=== PATIENT | male | born 1990 | race Caucasian/White ===

== ENCOUNTER 2017-09-12 00:49 | Inpatient (IN) | payer MEDICAID, OTHER ==
[2017-09-12 01:45] LABS: ADD MAN DIFF? NO
[2017-09-12 01:47] LABS: WHITE BLOOD COUNT 10.4 10^3/ul (4.8-10.8)
[2017-09-12 01:47] LABS: BASOPHILS % 0.2 % (0.0-2.0); EOSINOPHILS # 0.1 10^3/ul (0.0-0.5); EOSINOPHILS % 0.6 % (0.0-7.0); HEMATOCRIT 43.7 % (42.0-52.0); HEMOGLOBIN 13.8 g/dl (14.0-18.0); LYMPHOCYTES # 2.1 10^3/ul (0.8-2.9); LYMPHOCYTES % 20.7 % (15.0-51.0); MEAN CORPUSCULAR HEMOGLOBIN 27.4 pg (29.0-33.0); MEAN CORPUSCULAR HGB CONC 31.6 g/dl (32.0-37.0); MEAN CORPUSCULAR VOLUME 86.7 fl (82.0-101.0); MEAN PLATELET VOLUME 11.8 fl (7.4-10.4); MONOCYTE # 0.4 10^3/ul (0.3-0.9); MONOCYTES % 3.5 % (0.0-11.0); NEUTROPHIL # 7.7 10^3/ul (1.6-7.5); NEUTROPHILS % 74.4 % (39.0-77.0); PLATELET COUNT 170 10^3/UL (140-415); RED BLOOD COUNT 5.04 10^6/ul (4.70-6.10); RED CELL DISTRIBUTION WIDTH 12.9 % (11.5-14.5)
[2017-09-12] MEDS: ASPIRIN 81 MG TAB PO (01:55)
[2017-09-12 01:56] LABS: ADD UMIC YES; UR ASCORBIC ACID 40 mg/dL (NEGATIVE); UR BILIRUBIN (Dip) NEGATIVE (NEGATIVE); UR BLOOD (Dip) NEGATIVE (NEGATIVE); UR CLARITY CLEAR (CLEAR); UR COLOR YELLOW (YELLOW); UR GLUCOSE (Dip) 3+ mg/dL (NEGATIVE); UR KETONES (Dip) NEGATIVE (NEGATIVE); UR LEUKOCYTE ESTERASE (Dip) NEGATIVE Leu/ul (NEGATIVE); UR MUCUS FEW /HPF (NONE SEEN); UR NITRITE (Dip) NEGATIVE (NEGATIVE); UR RBC 1 /HPF (0-5); UR SPECIFIC GRAVITY (Dip) 1.017 (1.003-1.030); UR TOTAL PROTEIN (Dip) 1+ mg/dl (NEGATIVE); UR UROBILINOGEN (Dip) NEGATIVE (NEGATIVE); UR WBC 0 /HPF (0-5)
[2017-09-12] MEDS: FUROSEMIDE 40 MG INJ IV (01:56)
[2017-09-12 02:05] LABS: AADO2 Arterial 436.4 mmHg (7.0-24.0); Allen Test ACCEPTAB; Arterial Base Excess 0.3 mmol/L (-3.0-3); Arterial Blood Gas Oxygen Sat 94.5 mmHG (95.0-98.0); Arterial COHb 1.3 % (0.0-3.0); Arterial Fraction of Oxyhgb 93.1 % (93.0-99.0); Arterial HCO3 27.5 mmol/L (22.0-26.0); Arterial MetHb 0.2 % (0.0-1.5); Arterial Total Hemglobin 14.8 g/dl (12.0-18.0); Arterial pCO2 54.5 mmhg (35-45); Blood Gas IEPAP 15/5; Blood Gas PS 10; MODE MASK - BIPAP; Site Right Radial
[2017-09-12 02:08] LABS: ALANINE AMINOTRANSFERASE 50 IU/L (13-69); ALBUMIN 5.1 g/dl (3.3-4.9); ALBUMIN/GLOBULIN RATIO 1.88; ALKALINE PHOSPHATASE 82 IU/L (42-121); ANION GAP 23 (8-16); ASPARTATE AMINO TRANSFERASE 42 IU/L (15-46); BILIRUBIN,INDIRECT 0.2 mg/dl (0-1.1); BILIRUBIN,TOTAL 0.2 mg/dl (0.2-1.3); BLOOD UREA NITROGEN 20 mg/dl (7-20); CALCIUM 9.1 mg/dl (8.4-10.2); CARBON DIOXIDE 27 mmol/L (21-31); CHLORIDE 92 mmol/L (97-110); CREATININE 0.98 mg/dl (0.61-1.24); GLUCOSE 318 mg/dl (70-220); LIPASE 46 U/L (23-300); POTASSIUM 3.8 mmol/L (3.5-5.1); SODIUM 138 mmol/L (135-144); TOTAL PROTEIN 7.8 g/dl (6.1-8.1)
[2017-09-12 02:19] LABS: B-TYPE NATRIURETIC PEPTIDE 100 PG/ML (0-125)
[2017-09-12 02:20] LABS: CANNABINOIDS Positive (NEGATIVE); COCAINE Positive (NEGATIVE)
[2017-09-12 02:23] LABS: TROPONIN-I 0.206 ng/ml (0.000-0.120)
[2017-09-12 02:24] LABS: AMPHETAMINE/METHAMPHETAMINE Negative (NEGATIVE); BARBITURATES Negative (NEGATIVE); BENZODIAZEPINES Negative (NEGATIVE); OPIATES Positive (NEGATIVE)
[2017-09-12] MEDS ORDERED: DEXTROSE 5%-0.45% NACL 1,000 ML IV (03:04)
[2017-09-12] MEDS ORDERED: ONDANSETRON 4 MG INJ IV (03:30)
[2017-09-12] MEDS ORDERED: LORAZEPAM 2 MG INJ IV (03:30)
[2017-09-12] MEDS ORDERED: NACL 0.9% 3 ML SYG IV (03:30)
[2017-09-12] MEDS ORDERED: LEVALBUTEROL (NEB) 0.63 MG/3 ML AMP HHN (03:30)
[2017-09-12] MEDS ORDERED: NITROGLYCERIN (SL) 0.4 MG TAB SL (03:30)
[2017-09-12] MEDS ORDERED: GLUCAGON 1 MG INJ IM (03:30)
[2017-09-12] MEDS ORDERED: GLUCOSE GEL 15 GRAM TUBE PO ×2 (03:30)
[2017-09-12] MEDS ORDERED: morphine 2 MG INJ IV (03:30)
[2017-09-12] MEDS ORDERED: GLUCOSE GEL 15 GRAM TUBE BUCCAL (03:30)
[2017-09-12] MEDS ORDERED: IPRATROPIUM (NEB) 0.5 MG/2.5 ML AMP NEB (03:30)
[2017-09-12] MEDS ORDERED: DEXTROSE 50% 50 ML SYRINGE IV ×2 (03:30)
[2017-09-12] MEDS: SOD CHLORIDE 0.9% 1,000 ML IV ×2 (03:33→10:52)
[2017-09-12] MEDS: INSULIN ASPART [NOVOLOG] 3 ML PEN SC ×4 (05:00→17:00)
[2017-09-12 05:07] LABS: Allen Test ACCEPTAB; Arterial Base Excess -0.4 mmol/L (-3.0-3); Arterial Blood Gas Oxygen Sat 97.1 mmHG (95.0-98.0); Arterial COHb 0.7 % (0.0-3.0); Arterial Fraction of Oxyhgb 96.2 % (93.0-99.0); Arterial HCO3 26.7 mmol/L (22.0-26.0); Arterial MetHb 0.2 % (0.0-1.5); Arterial pCO2 53.2 mmhg (35-45); Blood Gas IEPAP 15/5; MODE MASK - BIPAP; Site Right Radial
[2017-09-12] MEDS: LEVOFLOXACIN 500MG/D5W (PMX) 100 ML IVPB (05:54)
[2017-09-12 06:04] LABS: ADD MAN DIFF? NO
[2017-09-12 06:08] LABS: WHITE BLOOD COUNT 13.5 10^3/ul (4.8-10.8)
[2017-09-12 06:08] LABS: BASOPHILS % 0.1 % (0.0-2.0); EOSINOPHILS % 0.1 % (0.0-7.0); HEMATOCRIT 43.7 % (42.0-52.0); HEMOGLOBIN 13.9 g/dl (14.0-18.0); LYMPHOCYTES # 0.8 10^3/ul (0.8-2.9); LYMPHOCYTES % 6.2 % (15.0-51.0); MEAN CORPUSCULAR HEMOGLOBIN 27.4 pg (29.0-33.0); MEAN CORPUSCULAR HGB CONC 31.8 g/dl (32.0-37.0); MEAN PLATELET VOLUME 11.7 fl (7.4-10.4); MONOCYTES % 7.3 % (0.0-11.0); NEUTROPHIL # 11.6 10^3/ul (1.6-7.5); NEUTROPHILS % 85.9 % (39.0-77.0); PLATELET COUNT 172 10^3/UL (140-415); RED BLOOD COUNT 5.08 10^6/ul (4.70-6.10); RED CELL DISTRIBUTION WIDTH 12.4 % (11.5-14.5)
[2017-09-12 06:42] LABS: CREATINE KINASE 308 IU/L (23-200)
[2017-09-12 06:46] LABS: ALANINE AMINOTRANSFERASE 55 IU/L (13-69); ALBUMIN 4.9 g/dl (3.3-4.9); ALBUMIN/GLOBULIN RATIO 1.68; ALKALINE PHOSPHATASE 86 IU/L (42-121); ANION GAP 18 (8-16); ASPARTATE AMINO TRANSFERASE 41 IU/L (15-46); BILIRUBIN,INDIRECT 0.3 mg/dl (0-1.1); BILIRUBIN,TOTAL 0.3 mg/dl (0.2-1.3); BLOOD UREA NITROGEN 21 mg/dl (7-20); CALCIUM 9.3 mg/dl (8.4-10.2); CARBON DIOXIDE 30 mmol/L (21-31); CHLORIDE 97 mmol/L (97-110); CHOL/HDL RATIO 3.8 RATIO; CHOLESTEROL 218 mg/dl (100-200); CREATININE 0.79 mg/dl (0.61-1.24); GLUCOSE 111 mg/dl (70-220); HDL CHOLESTEROL 57 mg/dl (30-63); LDL CHOLESTEROL,CALCULATED 134 mg/dl; POTASSIUM 4.3 mmol/L (3.5-5.1); SODIUM 141 mmol/L (135-144); TOTAL PROTEIN 7.8 g/dl (6.1-8.1); TRIGLYCERIDES 135 mg/dl (0-149)
[2017-09-12 06:54] LABS: CK INDEX 0.5
[2017-09-12 06:56] LABS: CK-MB 1.55 ng/ml (0.0-2.4); TROPONIN-I 0.367 ng/ml (0.000-0.120)
[2017-09-12 07:11] LABS: HEMOGLOBIN A1C 5.5 % (0-5.9)
[2017-09-12 07:13] LABS: THYROID STIMULATING HORMONE 0.315 MIU/L (0.465-4.680)
[2017-09-12] MEDS: INSULIN DETEMIR [LEVEMIR] 3ML CART SC (08:00)
[2017-09-12] MEDS: ENOXAPARIN 40 MG/0.4 ML SYG SC (08:19)
[2017-09-12] MEDS ORDERED: NALOXONE (0.4 MG/ML) INJ IV (09:00)
[2017-09-12] MEDS ORDERED: LORAZEPAM 1 MG TAB PO ×2 (14:30)
[2017-09-12 14:49] LABS: ETHANOL < 10.0 mg/dl
[2017-09-12 15:17] LABS: T4 (THYROXINE) 9.1 ug/dl (5.5-11.0)
[2017-09-12 15:27] LABS: FREE T4 (FREE THYROXINE) 1.09 ng/dl (0.79-2.35)
[2017-09-12 15:46] LABS: CREATINE KINASE 242 IU/L (23-200)
[2017-09-12 16:03] LABS: CK INDEX 0.5; TROPONIN-I 0.086 ng/ml (0.000-0.120)
[2017-09-12 16:04] LABS: CK-MB 1.25 ng/ml (0.0-2.4)
[2017-09-13 00:57] LABS: CREATINE KINASE 200 IU/L (23-200)
[2017-09-13 01:03] LABS: CK INDEX 0.5; TROPONIN-I 0.058 ng/ml (0.000-0.120)
[2017-09-13 01:04] LABS: CK-MB 0.96 ng/ml (0.0-2.4)
[2017-09-13] MEDS ORDERED: ACCU-CHEK XX (02:00)
[2017-09-13 07:59] LABS: ADD MAN DIFF? NO
[2017-09-13 08:15] LABS: WHITE BLOOD COUNT 10.2 10^3/ul (4.8-10.8)
[2017-09-13 08:15] LABS: BASOPHILS % 0.3 % (0.0-2.0); EOSINOPHILS # 0.2 10^3/ul (0.0-0.5); EOSINOPHILS % 1.9 % (0.0-7.0); HEMATOCRIT 38.8 % (42.0-52.0); HEMOGLOBIN 12.4 g/dl (14.0-18.0); LYMPHOCYTES # 1.9 10^3/ul (0.8-2.9); MEAN CORPUSCULAR HEMOGLOBIN 27.3 pg (29.0-33.0); MEAN CORPUSCULAR VOLUME 85.5 fl (82.0-101.0); MEAN PLATELET VOLUME 12.1 fl (7.4-10.4); MONOCYTE # 1.1 10^3/ul (0.3-0.9); MONOCYTES % 10.7 % (0.0-11.0); NEUTROPHIL # 6.9 10^3/ul (1.6-7.5); NEUTROPHILS % 67.7 % (39.0-77.0); PLATELET COUNT 153 10^3/UL (140-415); RED BLOOD COUNT 4.54 10^6/ul (4.70-6.10); RED CELL DISTRIBUTION WIDTH 12.8 % (11.5-14.5)
[2017-09-13 08:35] LABS: ANION GAP 15 (8-16); BLOOD UREA NITROGEN 12 mg/dl (7-20); CALCIUM 9.3 mg/dl (8.4-10.2); CARBON DIOXIDE 30 mmol/L (21-31); CHLORIDE 102 mmol/L (97-110); CREATININE 0.78 mg/dl (0.61-1.24); GLUCOSE 101 mg/dl (70-220); SODIUM 143 mmol/L (135-144)
[2017-09-13] MEDS: MULTIVITAMINS THERAPEUTIC TAB PO (08:35)
[2017-09-13] MEDS: FOLIC ACID 1 MG TAB PO (08:35)
[2017-09-13] MEDS: ENOXAPARIN 40 MG/0.4 ML SYG SC (08:39)
[2017-09-13] MEDS: THIAMINE 200 MG INJ IM (10:31)
== END 2017-09-13 15:00 | disposition home or self-care (01) | DRG 917 ==
LOC: E/R 00:49 → MS4 17:17
PROVIDERS: Internal Medicine
PROC: 5A09357 Assistance with Respiratory Ventilation, Less than 24 Consecutive Hours, Continuous Positive Airway Pressure (ICD-10-PCS; principal; 2017-09-12)
DX: T40.5X1A Poisoning by cocaine, accidental (unintentional), initial encounter (principal); G92 Toxic encephalopathy; T40.601A Poisoning by unspecified narcotics, accidental (unintentional), initial encounter; T40.7X1A Poisoning by cannabis (derivatives), accidental (unintentional), initial encounter; Y92.019 Unspecified place in single-family (private) house as the place of occurrence of the external cause; F10.10 Alcohol abuse, uncomplicated; E05.90 Thyrotoxicosis, unspecified without thyrotoxic crisis or storm
CPT/HCPCS: 36415; 36600; 71045; 80048; 80053; 80061; 80307; 81001; 82550; 82553; 82803; 82962; 83036; 83690; 83735; 83880; 84100; 84436; 84439; 84443; 84484; 85025; 93005; 93306; 94660; 96372; 96374; 96375; 99291-25